=== PATIENT | male | born 1945 | race African-American/Black ===

== ENCOUNTER 2017-10-07 09:53 | Emergency (ER) | payer MEDICARE ==
[~2017-10-07] VITALS: Ht 177.8 cm; Wt 67.7 kg
[~2017-10-07 09:53] MED LIST: ACIPHEX20 MG OR; ALPRAZOLAM ER0.5 MG PO; AMLODIPINE10 MG OR; AMLODIPINE10 MG PO; AMOXICILLIN500 MG PO; APRESOLINE25 MG/TAB PO; ARICEPT10 MG PO; ATORVASTATIN CA10 MG PO; AUGMENTIN875 MG OR; AVODART0.5 MG OR; AVODART0.5 MG PO; BAYER ASPIRIN E81 MG PO; BENICAR20 MG OR; BETIMOL0.5 % OU; BICALUTAMIDE50 MG PO; CARVEDILOL3.125 MG PO; CIPRO400 MG/200 IV; CIPRO500 MG OR; CLONIDINE0.1 MG PO; CLONIDINE0.2 MG PO; CRESTOR20 MG PO; D31000 UNI1 PO; DUREZOL0.05 % OS; ELIQUIS5 MG PO; EQ ASA CHLD81 MG PO; FINASTERIDE5 MG PO; FLOMAX0.4 M1 OR; FLOMAX0.4 M1 PO; FLUDROCORTISON0.1 MG PO; HYDROCHLORO25 MG/TAB PO; HYDROCHLOROT25 MG PO; ILEVRO0.3 % OS; ISOSORB MONO30 MG PO; KETOROLAC0.5 % OP; LANTUS SOLOSTAR SC; LANTUS100 MG/ML SC; LEVEMIR FL100 UNIT/M SC; LEXAPRO10 MG OR; LISINOPRIL10 MG PO; LISINOPRIL2.5 MG PO; LISINOPRIL20 MG PO; LISINOPRIL40 MG PO; LOPRESSOR25 MG PO; LORTAB 5-325 MG1 TAB PO; LYRICA75 MG OR; METOPROL TAR100 MG PO; MICROZIDE OR; NORVASC10 MG OR; NOVOLOG FLEXPEN SC; NOVOLOG100 IU/1 M SC; NOVOLOG100 UNIT/M; OMEPRAZOLE20 M1 PO; OMEPRAZOLE20 MG PO; PERCOCET 5/325M1 TAB OR; PLAVIX75 MG PO; TAMSULOSIN0.4 MG PO; VIIBRYD10 MG PO; VITAMIN B-121000 MCG PO; VITAMIN B-12500 MCG PO; VITAMIN D31000 UNI1 PO; VYTORIN 10/401 TAB OR
[2017-10-07] MEDS ORDERED: LISINOPRIL20 M1 PO (10:50)
[2017-10-07 11:12] LABS: HEMATOCRIT 26.5 % (39.0-50.0); HEMOGLOBIN 7.9 g/dl (14.0-18.0); IMMATURE GRANULOCYTES 0.3 % (0.0-1.0); MEAN CELL VOLUME 91.1 fL CALC (80.0-100.0); MEAN CORPUSCULAR HGB 27.1 pG CALC (26.0-32.0); MEAN CORPUSCULAR HGB CONC 29.8 g/L CALC (32.0-36.0); NEUT# 6.62 thou/uL (1.82-7.42); RED BLOOD COUNT 2.91 mill/uL (4.70-6.10); RED CELL DISTRI WIDTH 16.6 % (11.5-15.5)
[2017-10-07 11:33] LABS: ALBUMIN 3.7 g/dL (3.2-5.0); ALKALINE PHOSPHATASE 198 u/l (38-126); ANION GAP 16 (6-22 (CALC)); BILIRUBIN, TOTAL 0.4 mg/dL (0.0-1.4); BUN 24 mg/dL (8-23); BUN/CREATININE RATIO 24 (12-20 (CALC)); CARBON DIOXIDE 25 mmol/l (22-30); CHLORIDE 109 mmol/l (95-108); GFR > 60 ML/MIN (>=60 (CALC)); GFR FOR AFR.AMER. > 60 ML/MIN (>=60 (CALC)); GLUCOSE 143 mg/dL (82-115); POTASSIUM 4.2 mmol/l (3.5-5.1); SGOT/AST 17 u/l (19-48); SGPT/ALT 18 u/l (11-66); SODIUM 146 mmol/l (137-146); TOTAL PROTEIN 6.9 g/dL (6.3-8.2)
[2017-10-07 11:41] LABS: MYOGLOBIN 83 ng/mL (0 - 121)
[2017-10-07 12:53] LABS: INFLUENZA A NONE DETECTED (NONE DETECT); INFLUENZA B NONE DETECTED (NONE DETECT)
[2017-10-07] MEDS ORDERED: VITAMIN D31000 UNI1 PO (14:00)
[2017-10-07] MEDS ORDERED: SERTRALINE HCL50 MG PO (14:01)
[2017-10-07] MEDS ORDERED: ATORVASTATIN CA10 MG PO (14:01)
[2017-10-07] MEDS ORDERED: XTANDI40 MG PO (14:02)
[2017-10-07] MEDS ORDERED: FERR SULFATE325 MG PO (14:03)
[2017-10-07] MEDS ORDERED: OMEPRAZOLE10 MG PO (14:03)
[2017-10-07 15:35] VITALS: BP 122/56
== END 2017-10-07 15:59 | disposition home or self-care (01) ==
LOC: ED 09:53
PROVIDERS: Emergency Medicine
DX: D64.9 Anemia, unspecified (principal); C61 Malignant neoplasm of prostate; C79.9 Secondary malignant neoplasm of unspecified site; E11.9 Type 2 diabetes mellitus without complications; F03.90 Unspecified dementia, unspecified severity, without behavioral disturbance, psychotic disturbance, mood disturbance, and anxiety; Z95.0 Presence of cardiac pacemaker